=== PATIENT | female | born 1985 | race Caucasian/White ===

== ENCOUNTER → 2017-04-13 | Outpatient (CLI) | payer BC ==
[2017-04-13 17:28] LABS: HEMOGLOBIN 12.7 g/dL (12.2-16.2); LYMPH # 2.2 K/mm3 (0.7-4.5); LYMPH % 22.6 % (10-50.0)
[2017-04-13 19:19] LABS: ABO BLOOD TYPE AB; RH BLOOD TYPE POSITIVE
[2017-04-13 20:24] LABS: AMPHETAMINES/METAMPHETAMINES NEGATIVE ng/mL (<1000)
[2017-04-15 08:39] LABS: HBsAg Screen Negative (Negative); HIV Screen 4th Generation wRfx Non Reactive (Non Reactive); Rapid Plasma Reagin, Quant Non Reactive (NonRea<1:1)
== END ==
LOC: LAB 16:59
PROVIDERS: Obstetrics & Gynecology
DX: Z04.8 Encounter for examination and observation for other specified reasons (principal); Z36.89 Encounter for other specified antenatal screening
CPT/HCPCS: G0432